=== PATIENT | male | born 1960 | race Caucasian/White ===

== ENCOUNTER 2020-03-09 05:21 | Emergency (ER) | payer OTHER ==
[~2020-03-09] VITALS: Ht 172.7 cm; Wt 101.2 kg
[2020-03-09 05:28] VITALS: Ht 172.7 cm; Wt 101.2 kg
[2020-03-09 06:09] VITALS: BP 164/102
== END 2020-03-09 06:57 | disposition home or self-care (01) ==
LOC: ED 05:21
DX: R07.89 Other chest pain (principal); I10 Essential (primary) hypertension; V49.49XA Driver injured in collision with other motor vehicles in traffic accident, initial encounter; Y93.I9 Activity, other involving external motion; Y92.413 State road as the place of occurrence of the external cause; Y99.8 Other external cause status